=== PATIENT | male | born 1955 | race African-American/Black ===

== ENCOUNTER → 2019-07-17 | Outpatient (CLI) | payer OTHER ==
[~2019-07-17] VITALS: Ht 177.8 cm; Wt 114.3 kg
[~2019-07-17] MED LIST: ALEVE220 M1 PO; ASPIR-LOW81 MG PO; AZOR 10-40 MG1 EACH PO
[2019-07-17 13:22] LABS: HEMATOCRIT 48.9 % (42.0-52.0); HEMOGLOBIN 16.1 gm/dL (14.0-18.0); MCH 28.2 pg (26.0-34.0); MCV 85.5 fL (80.0-100.0); RBC 5.72 mil/uL (4.50-6.00); RDW 15.8 % (10.5-14.5); URINE BILIRUBIN NEGATIVE (Negative); URINE BLOOD NEGATIVE (Negative); URINE CLARITY CLEAR; URINE COLOR YELLOW; URINE GLUCOSE-RANDOM* NEGATIVE (Negative); URINE KETONES NEGATIVE (Negative); URINE LEUKOCYTES-REFLEX NEGATIVE (Negative); URINE PROTEIN (DIPSTICK) NEGATIVE (Negative); URINE UROBILINOGEN 0.2 E.U./dl (0.2-1.0); WBC 10.1 thou/uL (4.0-11.0)
[2019-07-17 13:26] LABS: ALBUMIN 3.8 g/dL (3.4-5.0); CALCIUM 9.9 mg/dL (8.5-10.1); POTASSIUM 4.1 mmol/L (3.5-5.1)
[2019-07-17 13:31] LABS: PROTIME 10.4 Seconds (9.3-11.4)
[2019-07-17 13:35] LABS: URINE NITRITE-REFLEX POSITIVE (Negative)
[2019-07-17 13:39] LABS: CASTS None Seen /LPF (None Seen); CRYSTALS None Seen /LPF (None Seen); SQUAMOUS None Seen /LPF (0-3); URINE RBC None Seen /HPF (0-2); URINE WBC-REFLEX 0-5 Rare /HPF (0-5)
--- NOTE | 2019-07-18 08:25 | EKG ---
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
== END ==
LOC: PRE 08:00 → TBA 08:00 → PAC 08:00 → PRE 08-05 05:38 → TBA 08-05 05:38 → PRE 08-05 08:14 → TBA 08-05 16:09 → EDSTATUS 09-02 08:16 → PAC 09-02 08:28 → PRE 09-02 18:06
PROVIDERS: Orthopaedic Surgery
DX: I11.0 Hypertensive heart disease with heart failure (principal); E78.5 Hyperlipidemia, unspecified; I25.2 Old myocardial infarction; I50.9 Heart failure, unspecified